=== PATIENT | male | born 1965 | race African-American/Black ===

== ENCOUNTER 2019-01-19 19:06 | Emergency (ER) | payer OTHER ==
[2019-01-19] MEDS ORDERED: BENZONATATE 100 MG CAPSULE PO ONE (23:56)
[2019-01-19] MEDS ORDERED: ACETAMINOPHEN 325 MG TABLET PO ONE (23:57)
[2019-01-19] MEDS ORDERED: IBUPROFEN 600 MG TABLET PO ONE (23:57)
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
[2019-01-20 01:21] VITALS: BP 149/95
== END 2019-01-20 01:21 | disposition home or self-care (01) ==
LOC: ER 19:06
DX: S59.901A Unspecified injury of right elbow, initial encounter (principal); S89.91XA Unspecified injury of right lower leg, initial encounter; R05 Cough; M25.521 Pain in right elbow; M25.561 Pain in right knee; V87.7XXA Person injured in collision between other specified motor vehicles (traffic), initial encounter
CPT/HCPCS: 99283